=== PATIENT | male | born 1980 | race Caucasian/White ===

== ENCOUNTER 2024-02-23 00:47 | Emergency (ER) | payer BC ==
[2024-02-23] MEDS: Proparacaine 0.5% Ophth Soln 15 ML Bottle EYELF ONE (01:23)
== END 2024-02-23 01:31 | disposition home or self-care (01) ==
LOC: JP.ED 00:47
DX: H16.9 Unspecified keratitis (principal); I10 Essential (primary) hypertension
CPT/HCPCS: 99283; A9270